=== PATIENT | female | born 1970 | race African-American/Black ===

== ENCOUNTER 2016-07-26 23:42 | Emergency (ER) | payer MEDICARE, OTHER ==
[~2016-07-26] VITALS: Ht 157.5 cm; Wt 63.5 kg
[~2016-07-26 23:42] MED LIST: BUPR-187 PO; DOXY100T20 PO; HYDR-906 PO; IBUP-1542 PO; LEVO500T72 PO; ONDA4TAB14 PO; PHEN100C PO; QUET100T PO
[2016-07-26 23:50] VITALS: Ht 157.5 cm; Wt 63.5 kg
[2016-07-27] MEDS ORDERED: HYDROCODONE/APAP (5/325) TAB PO ONE (01:30)
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
[2016-07-27] MEDS ORDERED: HYDR-906 PO (03:13)
[2016-07-27 03:25] VITALS: BP 160/96; PULSE 58; RESP 20; TEMP 98.3
== END 2016-07-27 03:25 | disposition home or self-care (01) ==
LOC: FTE 23:42
DX: S39.92XA Unspecified injury of lower back, initial encounter (principal); S19.9XXA Unspecified injury of neck, initial encounter; I10 Essential (primary) hypertension; V49.40XA Driver injured in collision with unspecified motor vehicles in traffic accident, initial encounter
CPT/HCPCS: 72050; 72100; 99283

== ENCOUNTER 2016-10-04 23:41 | Emergency (ER) | payer MEDICARE, OTHER ==
[~2016-10-04] VITALS: Ht 162.6 cm; Wt 63.0 kg
[~2016-10-04 23:41] MED LIST changes: +AMOX500C6; +CEPH500C PO; +CLON2TAB15; +HYDR-845; +PHEN100C; +QUET200T; +VENL150C; +VIC PO; +WELLBUTRIN; +[UNRECOGNIZED DRUG - CODE] PO; +[UNRECOGNIZED DRUG - OTHER]
[2016-10-04 23:43] VITALS: Ht 162.6 cm; Wt 63.0 kg
--- NOTE | 2016-10-05 01:22 | ERD ---
ER Documentation Chief Complaint Date/Time DATE: 10/05/16 TIME: 01:05 Chief Complaint sp fall from hover board, left shoulder pain, back pain HPI 46-year-old female who presents emergency department for left shoulder pain, back pain, facial pain, headache, neck pain. Stated that she fell last Saturday at around 6 PM while on her home or board. Patient stated that she landed on her upper back, rolled backwards, hit her face in the floor, not sure if she had a loss of consciousness, complains of back pain and stiffness after that. Stated that she was ambulatory after the fall. Denies loss of consciousness, dizziness, blurry vision, changes in vision, photophobia, facial pain, ear pain, throat pain, difficulty swallowing, chest pain, cough, hemoptysis, abdominal pain, loss of appetite, nausea, vomiting, hematochezia, diarrhea, constipation, urinary symptoms, , the possibility of being , bladder and bowel incontinences, extremity weakness, extremity tenderness, numbness or tingling sensation, difficulty walking, recent travel, recent exposure to illness, recent antibiotic use in the last 3 months, fever, chills. No known drug allergies. Past medical history of epilepsy. No surgical history. Medication: Dilantin. Social: Not working at this time. Denies smoking, use of alcohol, use of illegal drugs. LMP was October 01, 2016. A0. ROS All systems reviewed and are negative except as per history of present illness. Medications Home Meds Active Scripts Hydrocodone/Acetaminophen ([place] 5-325 Tablet) 1 Each Tablet, 1 TAB PO Q6H Y for PAIN, #7 TAB Prov:EDUARDO ZHANG PA-C 07/27/16 Ondansetron (Ondansetron Odt) 4 Mg Tab.rapdis, 4 MG PO Q6H Y for NAUSEA AND/OR VOMITING, #30 TAB Prov:MELISSA CONNOR MD 01/12/16 Levofloxacin* (Levaquin*) 500 Mg Tablet, 500 MG PO DAILY for 10 Days, TAB Prov:DEIRDRE WEI 01/11/16 Doxycycline Hyclate* (Doxycycline Hyclate*) 100 Mg Tablet.dr, 100 MG PO BID for 10 Days, TAB Prov:DEIRDRE WEI 01/11/16 Ibuprofen* (Motrin*) 600 Mg Tab, 600 MG PO Q8, #30 TAB Prov:DEIRDRE WEI 01/11/16 Hydrocodone/Acetaminophen ([place] 5-325 Tablet) 1 Each Tablet, 1 TAB PO Q6H Y for PAIN, #20 TAB Prov:DEIRDRE WEI 01/11/16 Reported Medications Bupropion Hcl* (Wellbutrin SR*) 100 Mg Tablet.sa, 100 MG PO DAILY, TAB.SA 01/11/16 Quetiapine Fumarate* (Seroquel*) 100 Mg Tablet, 100 MG PO HS, #30 TAB 01/11/16 Phenytoin* Sodium Extended (Dilantin*) 100 Mg Capsule, 100 MG PO BID, CAP 01/11/16 Allergies Allergies: Coded Allergies: No Known Allergy (Unverified , 07/26/16) PMhx/Soc History of Surgery: No Anesthesia Reaction: No Hx Neurological Disorder: Yes (epilepsy) Hx Respiratory Disorders: No Hx Cardiac Disorders: Yes (HTN) Hx Psychiatric Problems: No Hx Miscellaneous Medical Probl: No Hx Alcohol Use: No Hx Substance Use: Yes (MARIJUANA) Hx Tobacco Use: Yes Physical Exam Vitals Vital Signs Date Time Temp Pulse Resp B/P Pulse Ox O2 Delivery O2 Flow Rate FiO2 10/04/16 23:43 97.9 60 20 165/81 100 Physical Exam CONSTITUTIONAL: Well-appearing; well-nourished; in no apparent distress. HEAD: Normocephalic; atraumatic. Abrasion to the forehead. EYES: Conjunctiva clear, sclera non-icteric, EOM intact. PERRL Ears: Hearing intact. EACs clear, TMs non-bulging, non-inflamed, translucent & mobile, ossicles normal appearance, No obstructions, no erythema, no discharges Nose: No obstructions. No polyps. No external lesions. Mucosa non-inflamed. No external lesions, septum and turbinates normal. No rhinorrhea. No discharges. Frontal sinus is non-tender to palpation. Maxillary sinus is non-tender to palpation. MOUTH: Moist mucous membranes, no lesion, no obstructions, no vesicles, no thrush, patent airway Throat: Uvula in midline. Right tonsil is +1 with no erythema, no exudate. Left tonsil is +1 with no erythema, no exudate. Tolerating secretions well. Good gag reflex. Patent airway. Neck: Supple, without lesions, bruits, or adenopathy. No mass. Thyroid non- enlarged and non-tender to palpation. Left-sided neck pain during range of motion. CHEST: Symmetrical chest. Respirations even and not labored. No retractions noted. CARDIOVASCULAR: Normal S1, S2. RRR. No murmurs, gallops. RESPIRATORY: Normal chest excursion with respiration; breath sounds clear and equal bilaterally; no wheezes, rhonchi, or rales. Breathing even and unlabored. Speaking in clear, full, and complete sentences w/ ease. ABDOMEN: Normal bowel sounds normal. Soft, round, non-distended, non-guarding, no tenderness, no rebound, no organomegaly, no masses, no pulsating abdominal mass. No hernia. No peritoneal signs. : No CVA tenderness. BACK: Symmetrical shoulder. Spine is midline without deformity, tenderness. No evidence of trauma or deformity. PELVIS: Stable pelvis. No evidence of trauma or deformity. MUSCULOSKELETAL: Normal gait and station. No misalignment, asymmetry, crepitation, defects, tenderness, masses, effusions, decreased range of motion, instability, atrophy or abnormal strength or tone in the head, neck, spine, ribs , pelvis or extremities. No calf tenderness. Supraspinatus tenderness to right upper and left upper back. C-spine/T-spine/L-spine are in midline and is no deformity/swelling/bulging/discoloration with no point of tenderness. NEUROVASCULAR: Distal pulses are present. Pedal pulse are present, equal, and normal. Capillary refills are < 2 seconds. NEUROLOGIC: Alert and oriented x4. Speaks full and clear sentences. Cranial Nerves II-XII normal. Sensation to pain, touch, and proprioception normal. Grossly unremarkable. No neurologic deficits. Romberg test is negative. PSYCHOLOGICAL: The patients mood and manner are appropriate. No hallucinations , delusions. Not SI. Not HI. Has the capacity to decide for self SKIN: Normal for age and ethnicity; warm; dry; good turgor; no apparent lesions or exudates. No rashes, hives, discoloration. Intact. Results 24 hrs Current Medications Medications (Trade) Dose Ordered Sig/Dominik Route PRN Reason Start Time Stop Time Status Last Admin Dose Admin Acetaminophen/ Hydrocodone Bitart ([place] (10/325)) 1 tab ONCE ONCE PO 8/18/17 01:30 10/05/16 01:31 DC 10/05/16 01:38 Procedures/MDM Examination: Please see physical examination. Disease process, medical treatment was explained to the patient and family member. They verbalized understanding and agreed with the diagnostic tests, medical treatment, and follow-up care. Radiology: CT of the brain: Not done. Patient eloped. CT of the max/face: Not done. Patient eloped. CT of the C-spine: Not done. Patient eloped. Chest x-ray: Not done. Patient eloped. Treatment: [place]. Patient eloped at around 01:53. Departure Diagnosis: Primary Impression: Multiple complaints Additional Impression: Back pain OLGA LIDIA VASQUEZ Oct 05, 2016 01:22 Urologist, Orthopedics, [facility] in 24-48 hours. Instructed to Call 911 for chest pain, shortness of breath. Advised to come back here in ED as soon as possible for severity of symptoms which includes but not limited to: any new symptoms; shortness of breath/difficulty of breathing; cardiovascular changes; severe gastrointestinal symptoms; signs and symptoms of bleeding and or infection; signs of compartment syndrome/neurovascular changes; neurological changes/deficits. Patient and family member verbalized understanding. Upon discharge, patient is alert and oriented x 4, speaks full and clear sentences, denies pain, has no neurological deficits, has no neurovascular deficits, difficulty of breathing. Breathing even and unlabored. Lung sounds are clear to auscultation. Not in distress. Appears comfortable. Ambulatory with steady gait. Appears satisfied with care provided here in ED. OLGA LIDIA VASQUEZ Oct 05, 2016 01:22
[2016-10-05] MEDS ORDERED: HYDROCODONE/APAP (10/325) TAB PO ONE (01:30)
== END 2016-10-05 04:10 | disposition left against medical advice (07) ==
LOC: FTE 23:41
DX: M25.512 Pain in left shoulder (principal); M54.6 Pain in thoracic spine; R51 Headache; M54.2 Cervicalgia; I10 Essential (primary) hypertension; Z87.891 Personal history of nicotine dependence
CPT/HCPCS: 99283

== ENCOUNTER 2017-04-29 14:07 | Emergency (ER) | END 2017-04-29 16:52 | disposition home or self-care (01) ==

== ENCOUNTER 2017-08-18 14:12 | Emergency (ER) | END 2017-08-18 19:54 | disposition home or self-care (01) ==

== ENCOUNTER 2018-06-25 19:53 | Emergency (ER) | payer MEDICARE, OTHER ==
[~2018-06-25] VITALS: Ht 157.5 cm; Wt 61.3 kg
[~2018-06-25 19:53] MED LIST changes: -AMOX500C6; +CEPH-443 PO; -CEPH500C PO; -CLON2TAB15; +HYDR-4011 PO; -HYDR-845; -HYDR-906 PO; +LEVO500T48 PO; -LEVO500T72 PO; -PHEN100C; -QUET200T; +SULF1TAB31 PO; -VENL150C; -VIC PO; -WELLBUTRIN; -[UNRECOGNIZED DRUG - CODE] PO; -[UNRECOGNIZED DRUG - OTHER]
[2018-06-25 20:18] VITALS: Ht 157.5 cm; Wt 61.3 kg
--- NOTE | 2018-06-25 21:25 | ERD ---
ER Documentation Chief Complaint Chief Complaint swelling left side of neck x 1 week HPI Patient is a 48-year-old female with past medical history of hypertension, epilepsy, presents the ER for concerns of dental pain x1 week. Patient states she is been unable to follow-up with a dentist for her left lower molar pain for the last week secondary to being busy at work. Patient states she has jaw pain as well. She denies any fevers or chills. Patient denies any neck pain or neck stiffness. She denies any nausea, vomiting abdominal pain, chest pain, shortness of breath, headache, blurry vision or LOC. Patient is also requesting refill of her high blood pressure medication as she ran out. Patient states she takes benazepril however she does not know the dose. ROS All systems reviewed and are negative except as per history of present illness. Medications Home Meds Active Scripts Ibuprofen* (Motrin*) 600 Mg Tab, 600 MG PO Q6, #30 TAB Prov:WILFRED MUNOZ PA-C 06/25/18 Acetaminophen* (Tylophen*) 500 Mg Capsule, 1 CAP PO Q6H PRN for PAIN AND OR ELEVATED TEMP, #20 CAP Prov:WILFRED MUNOZ PA-C 06/25/18 Amoxicillin/Potassium Clav (Amox-Clav 875-125 mg Tablet) 875-125 mg Tab, 1 TAB PO BID for 10 Days, #20 TAB Prov:WILFRED MUNOZ PA-C 06/25/18 Reported Medications Alprazolam* (Alprazolam*) 1 Mg Tablet, 1 MG PO DAILY for 30 Days, #30 TAKE 1 TABLET BY MOUTH EVERY DAY NEEDED 06/25/18 Quetiapine Fumarate* (Quetiapine Fumarate*) 100 Mg Tablet, 100 MG PO HS, TAB 06/25/18 Phenytoin* (Phenytoin*) 125 Mg/5 Ml Oral.susp, 100 MG PO BID for 30 Days, BOTTLE 06/25/18 Bupropion Hcl* (Bupropion Hcl*) 100 Mg Tablet, 100 MG PO DAILY, TAB 06/25/18 Discontinued Reported Medications Bupropion Hcl* (Wellbutrin SR*) 100 Mg Tablet.sa, 100 MG PO DAILY, TAB.SA 01/11/16 Quetiapine Fumarate* (Seroquel*) 100 Mg Tablet, 100 MG PO HS, #30 TAB 01/11/16 Phenytoin* Sodium Extended (Dilantin*) 100 Mg Capsule, 100 MG PO BID, CAP 01/11/16 Discontinued Scripts Hydrocodone/Acetaminophen ([place] 5-325 Tablet) 1 Each Tablet, 1 TAB PO Q6H PRN for PAIN, #20 TAB Prov:EVERETT BRADY 08/18/17 Cephalexin* (Keflex*) 500 Mg Capsule, 500 MG PO BID for 7 Days, CAP Prov:EVERETT BRADY 08/18/17 Cephalexin* (Keflex*) 500 Mg Capsule, 500 MG PO QID for 7 Days, CAP Prov:WILFRED ANDERSON PA-C 04/29/17 Sulfamethoxazole/Trimethoprim* (Bactrim Ds* Tablet) 1 Each Tablet, 1 TAB PO BID, #14 TAB Prov:WILFRED ANDERSON PA-C 04/29/17 Ibuprofen* (Motrin*) 600 Mg Tab, 600 MG PO Q6, #30 TAB Prov:WILFRED ANDERSON PA-C 04/29/17 Hydrocodone/Acetaminophen ([place] 5-325 Tablet) 1 Each Tablet, 1 TAB PO Q6H PRN for PAIN, #7 TAB Prov:WILFRED ANDERSON PA-C 04/29/17 Hydrocodone/Acetaminophen ([place] 5-325 Tablet) 1 Each Tablet, 1 TAB PO Q6H PRN for PAIN, #7 TAB Prov:EDUARDO ZHANG PA-C 07/27/16 Ondansetron (Ondansetron Odt) 4 Mg Tab.rapdis, 4 MG PO Q6H PRN for NAUSEA AND/OR VOMITING, #30 TAB Prov:MELISSA CONNOR MD 01/12/16 Levofloxacin* (Levaquin*) 500 Mg Tablet, 500 MG PO DAILY for 10 Days, TAB Prov:DEIRDRE WEI MD 01/11/16 Doxycycline Hyclate* (Doxycycline Hyclate*) 100 Mg Tablet.dr, 100 MG PO BID for 10 Days, TAB Prov:DEIRDRE WEI MD 01/11/16 Ibuprofen* (Motrin*) 600 Mg Tab, 600 MG PO Q8, #30 TAB Prov:DEIRDRE WEI MD 01/11/16 Hydrocodone/Acetaminophen ([place] 5-325 Tablet) 1 Each Tablet, 1 TAB PO Q6H PRN for PAIN, #20 TAB Prov:DEIRDRE WEI MD 01/11/16 Allergies Allergies: Coded Allergies: No Known Allergy (Unverified , 06/25/18) PMhx/Soc Medical and Surgical Hx: pt denies Medical Hx, pt denies Surgical Hx History of Surgery: No Anesthesia Reaction: No Hx Neurological Disorder: Yes (epilepsy) Hx Respiratory Disorders: No Hx Cardiac Disorders: Yes (HTN) Hx Psychiatric Problems: No Hx Miscellaneous Medical Probl: No Hx Alcohol Use: No Hx Substance Use: No Hx Tobacco Use: Yes Smoking Status: Current every day smoker FmHx Family History: No diabetes Physical Exam Vitals Vital Signs Date Temp Pulse Resp B/P (MAP) Pulse Ox O2 O2 Flow FiO2 Time Delivery Rate 06/25/18 98.2 72 18 135/75 99 Room Air 22:12 (95) 06/25/18 71 18 149/91 98 Room Air 21:16 (110) 06/25/18 98.6 71 18 20/188 79 20:18 (133) Physical Exam GENERAL: Well-developed, well-nourished female. Appears in no acute distress. Speaking in full sentences. HEAD: Normocephalic, atraumatic. EYES: Pupils are equally reactive bilaterally. EOMs grossly intact. No conjunctival erythema. ENT: Moist mucous membranes. No uvula deviation. No kissing tonsils. Numerous dental caries noted in the left lower molar. Tooth is tender to palpation. Poor dentition overall. No drooling. No trismus. No hyperextension of the neck. Mild left-sided jaw swelling noted. NECK: Supple. No meningismus. Normal range of motion of the neck. LUNG: Clear to auscultation bilaterally. No rhonchi, wheezing, rales or coarse breath sounds. HEART: Regular rate and rhythm. No murmurs, rubs or gallops. ABDOMEN: No scars, ecchymosis or rashes noted. Soft, nontender, and nondistended. Positive bowel sounds in all four quadrants. No rebound tenderness, no guarding. (-) McBurney's point tenderness. No CVA tenderness. BACK: No midline tenderness. EXTREMITIES: Equal pulses bilaterally. No peripheral clubbing, cyanosis or edema. No unilateral leg swelling. NEUROLOGIC: Alert and oriented. Moving all four extremities without any difficulty. Normal speech. Steady gait. SKIN: Normal color. Warm and dry. No rashes or lesions. Results 24 hrs Current Medications Medications Dose Sig/Dominik Start Time Status Last (Trade) Ordered Route PRN Stop Time Admin Dose Reason Admin 1 tab ONCE ONCE 06/25/18 DC 06/25/18 Acetaminophen PO 21:30 06/25/18 21:23 / 21:31 Hydrocodone Bitart ([place] (5/325)) Procedures/MDM MEDICAL DECISION MAKING: This is a 48-year-old female presents the ER for concerns of dental pain and refill of her hypertension medications. Vital signs were reviewed. Patient was afebrile. Patient was not hypoxic. Initial BP likely an error. BP reassessed and noted to be 149/91. On exam, patient noted to have numerous dental caries. The patient did not have trismus, muffled voice, uvula deviation, unilateral tonsillar swelling, or drooling. No signs of neck swelling or hyperextension of the neck noted. Patient was given dose of [place] here for dental pain. Patient will be discharged home with prescription for Augmentin, ibuprofen and Tylenol. Low suspicion for deep space infection, epiglottitis, strep pharyngitis, meningitis, peritonsillar abscess, osteomyelitis. Patient advised to follow-up with dentist on outpatient basis. Referral information provided. information systems technician did call the patient's pharmacy-- [facility]. Pharmacy unable to determine which prescription the patient is taking as she does not have any record of recent hypertensive medications. Patient advised to follow-up with primary care physician for any refills of her hypertensive medications. Low suspicion for hypertensive emergency, hypertensive urgency or end organ failure at this time. Patient was nontoxic, [id number] prior to discharge. PRESCRIPTIONS: Augmentin, ibuprofen, Tylenol DISCHARGE: At this time, patient is stable for discharge and outpatient management. I have instructed the patient to see a dentist today or tomorrow. I have instructed the patient to promptly return to the ER at any time for any new or worsening symptoms including increased pain, fever, swelling, neck swelling, neck stiffness, drooling or difficulty breathing. The patient and/or family expressed understanding of and agreement with this plan. All questions were answered. Home care instructions were provided. Patients blood pressure was elevated (>120/80) but appears stable without evidence of hypertensive emergency, hypertensive urgency or end-organ failure. I had discussion with the patient about the risks of hypertension. I have advised the patient to follow up with his/her primary care physician for outpatient monitoring and treatment for hypertension in 2-3 days. I have instructed the patient to return to the ER for any new or worsening symptoms including chest pain, shortness of breath, headache, blurred vision, confusion, nausea, vomiting or LOC. Departure Diagnosis: Primary Impression: Dental caries Additional Impressions: Medication refill Pain, dental HTN (hypertension) Hypertension type: unspecified Qualified Codes: I10 - Essential (primary) hypertension Condition: Fair Patient Instructions: Taking Medicine Safely, High Blood Pressure (Hypertension), Dental Pain Referrals: [facility] YOU HAVE RECEIVED A MEDICAL SCREENING EXAM AND THE RESULTS INDICATE THAT YOU DO NOT HAVE A CONDITION THAT REQUIRES URGENT TREATMENT IN THE EMERGENCY DEPARTMENT. FURTHER EVALUATION AND TREATMENT OF YOUR CONDITION CAN WAIT UNTIL YOU ARE SEEN IN YOUR DOCTORS OFFICE WITHIN THE NEXT 1-2 DAYS. IT IS YOUR RESPONSIBILITY TO MAKE AN APPOINTMENT FOR FOLOW-UP CARE. IF YOU HAVE A PRIMARY DOCTOR --you should call your primary doctor and schedule an appointment IF YOU DO NOT HAVE A PRIMARY DOCTOR YOU CAN CALL OUR PHYSICIAN REFERRAL HOTLINE AT IF YOU CAN NOT AFFORD TO SEE A PHYSICIAN YOU CAN CHOSE FROM THE FOLLOWING [facility] [address] [facility]. [facility] [address] [facility]. [facility] [address] [facility] [facility] [address] [facility] [facility] [address] [facility]. [facility]. [address] [facility]. [facility] YOU HAVE RECEIVED A MEDICAL SCREENING EXAM AND THE RESULTS INDICATE THAT YOU DO NOT HAVE A CONDITION THAT REQUIRES URGENT TREATMENT IN THE EMERGENCY DEPARTMENT. FURTHER EVALUATION AND TREATMENT OF YOUR CONDITION CAN WAIT UNTIL YOU ARE SEEN IN YOUR DOCTORS OFFICE WITHIN THE NEXT 1-2 DAYS. IT IS YOUR RESPONSIBILITY TO MAKE AN APPOINTMENT FOR FOLOW-UP CARE. IF YOU HAVE A PRIMARY DOCTOR --you should call your primary doctor and schedule and appointment IF YOU DO NOT HAVE A PRIMARY DOCTOR YOU CAN CALL OUR PHYSICIAN REFERRAL HOTLINE AT . IF YOU CAN NOT AFFORD TO SEE A PHYSICIAN YOU CAN CHOSE FROM THE FOLLOWING [facility] INSTITUTIONS: [facility] [address] [place] [address] [facility] [address] [place] [address] [facility] + [facility] [address] [place] [address] [facility] DENTIST ([facility] walk in clinic) Additional Instructions: Call your primary care doctor TOMORROW for an appointment during the next 1-2 days.See the doctor sooner or return here if your condition worsens before your appointment time. Follow-up with a dentist in the next 1 to 2 days. See referral information. Monitor your blood pressure closely. Follow-up with your primary care physician for any blood pressure medication refills. WILFRED MUNOZ PA-C June 25, 2018 21:25
[2018-06-25] MEDS ORDERED: HYDROCODONE/APAP (5/325) TAB PO ONE (21:30)
[2018-06-25] MEDS ORDERED: BUPR100T14 PO (21:38)
[2018-06-25] MEDS ORDERED: QUET100T32 PO (21:38)
[2018-06-25] MEDS ORDERED: PHEN125O3 PO (21:38)
[2018-06-25] MEDS ORDERED: ALPR1TAB7 PO (21:40)
[2018-06-25] MEDS ORDERED: AMOX1TAB10 PO (22:03)
[2018-06-25] MEDS ORDERED: ACET500C5 PO (22:03)
[2018-06-25] MEDS ORDERED: IBUP-1542 PO (22:04)
[2018-06-25 22:12] VITALS: BP 135/75; PULSE 72; RESP 18
== END 2018-06-25 22:25 | disposition home or self-care (01) ==
LOC: FTE 19:53
DX: K02.9 Dental caries, unspecified (principal); I10 Essential (primary) hypertension; F17.210 Nicotine dependence, cigarettes, uncomplicated; Z76.0 Encounter for issue of repeat prescription
CPT/HCPCS: 99283